=== PATIENT | male | born 1970 | race African-American/Black ===

== ENCOUNTER 2016-09-10 10:56 | Emergency (ER) | payer BC, OTHER ==
[~2016-09-10 10:56] MED LIST: FLEXERIL PO; VICODIN 5/500 T1 TAB PO; VICODIN PO
== END 2016-09-10 11:07 | disposition home or self-care (01) ==
LOC: CED 10:56
DX: M54.5 Low back pain (principal); F17.200 Nicotine dependence, unspecified, uncomplicated
CPT/HCPCS: 99282